=== PATIENT | male | born 1965 | race African-American/Black ===

== ENCOUNTER 2017-06-26 04:40 | Emergency (ER) | payer SELFPAY ==
[~2017-06-26 04:40] MED LIST: AMLO-27 PO; LISI-420 PO; ORE25 PO; SIMV20TA1 PO
--- NOTE | 2017-06-26 04:50 | NUR ---
PATIENT LEFT WITHOUT BEING SEEN BY DR. MCELROY. NO FURTHER CARE PROVIDED FOR PATIENT.
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
== END 2017-06-26 04:50 | disposition left against medical advice (07) ==
LOC: MED 04:40
DX: Z53.21 Procedure and treatment not carried out due to patient leaving prior to being seen by health care provider (principal)